=== PATIENT | female | born 1980 | race Two or more races ===

== ENCOUNTER → 2024-07-29 | Outpatient (CLI) | payer MEDICAID, SELFPAY ==
--- NOTE | 2024-07-29 13:00 | XR_ITS ---
Examination: Diagnostic digital mammography, bilateral Computer aided detection 3-D breast Tomosynthesis, bilateral Date and time of exam: July 29, 2024 1254 hours INDICATIONS: Mammogram April 20, 2023 benign-appearing nodules right breast, patient states bilateral breast lumps 3 years Technique: Nonmagnified MLO, CC views of the breasts to been obtained, reconstructed from 3-D Tomosynthesis images. R2 computer aided detection program utilized for evaluation of suspicious masses and/or abnormal calcifications. 3-D Tomosynthesis images obtained. Findings: Scattered areas of fibroglandular density Stable circumscribed nodule inner right breast 13 mm Stable focal asymmetry outer left breast CC view Impression: BI-RADS Category 0: Incomplete: Need additional imaging evaluation Recommend repeat bilateral breast sonography follow-up to document benign nodules both breasts.
== END | disposition home or self-care (01) ==
LOC: CDIM 12:44
PROVIDERS: Referring Provider Physician Assistant; Visit Provider Physician Assistant
DX: N63.20 Unspecified lump in the left breast, unspecified quadrant (principal); N63.10 Unspecified lump in the right breast, unspecified quadrant
CPT/HCPCS: 77062; 77066; G0279

== ENCOUNTER → 2024-09-12 | Outpatient (CLI) | payer MEDICAID, SELFPAY ==
--- NOTE | 2024-09-12 14:30 | XR_ITS ---
Examination: Breast ultrasound complete, bilateral Date and time of exam: 07/15/2024 1424 hours INDICATIONS: Right breast lump noticed beginning 28 years ago Technique: Real-time grayscale ultrasonographic imaging bilateral breasts, including all 4 quadrants as well as nipple retroareolar and axillary regions. Findings: Sonographic images right breast 12:00 circumscribed nodule 12 x 6 x 9 mm Sonographic images left breast 12:00 cyst 7 x 8 mm 2:00 cyst 4 x 6 mm No solid nodules IMPRESSION: BI-RADS Category 2: Benign findings Stable 12:00 nodule right breast compared to right breast sonogram April 20, 2023
== END | disposition home or self-care (01) ==
LOC: CDIM 14:13
PROVIDERS: PCP Physician Assistant; Referring Provider Physician Assistant; Visit Provider Physician Assistant
DX: N63.15 Unspecified lump in the right breast, overlapping quadrants (principal)
CPT/HCPCS: 76641

== ENCOUNTER → 2025-04-04 | Outpatient (CLI) | payer MEDICAID, SELFPAY ==
--- NOTE | 2025-04-04 07:30 | XR_ITS ---
MRI shoulder, left, without contrast. Date and time: April 04, 2025, 0812 hours INDICATIONS: Frozen shoulder shoulder pain joint clicking and decreased range of motion 1 year Technique: Multiple axial, sagittal and coronal sections of the shoulder have been obtained. Siemens high-resolution 1.5 Mariela MRI scanner is utilized. Axial fat-suppressed sections, TR 2350, TE 18 T2-weighted coronal fat-saturated images, TR 3500, TE 7100 T1-weighted coronal images, TR 500, TE 15 T2-weighted sagittal fat-saturated images, TR 3500, TE 57 T1-weighted sagittal sections, TR 504, TE 13. Findings: Supraspinatus tendon insertion is intact. Infraspinatus tendon insertion is intact. Subscapularis insertion is intact. Subscapularis bursa is not seen. Long head of the biceps is in the bicipital groove. No definite tear of the biceps superior labral anchor is seen. Retraction of the musculotendinous junction of the rotator cuff is not seen . Tendinosis pattern is moderate. Distance between the acromium and humeral head is 4.6 mm Atrophy of the supraspinatus muscle is moderate. Atrophy of the infraspinatus muscle is mild. Sagittal sections demonstrate a horizontal acromion. Acromioclavicular joint demonstrates mild osteoarthritis . Osacromiale is not identified. No labral tears. Bony glenoid fossa on the sagittal sections does not demonstrate osseous defect. Occult fracture or area of avascular necrosis is not seen. Acromioclavicular joint separation is not visible. Defect in the posterolateral margin of the humeral head is not seen Impression: Moderate rotator cuff tendinosis. Rotator cuff and labral margins appear intact
== END | disposition home or self-care (01) ==
LOC: SMRI 07:11
PROVIDERS: PCP Physician Assistant; Referring Provider Physician Assistant; Visit Provider Physician Assistant
DX: M67.814 Other specified disorders of tendon, left shoulder (principal)
CPT/HCPCS: 73221